=== PATIENT | female | born 1990 | race Caucasian/White ===

== ENCOUNTER → 2020-02-24 | Outpatient (CLI) | payer OTHER ==
[~2020-02-24] MED LIST: ACET325T14 PO; DIPH1TAB PO; HYDR-3240 PO; IBUP-1222 PO; SULF1TAB24 PO
== END | disposition home or self-care (01) ==
LOC: RAD 16:42 → EDSTATUS 17:00
PROVIDERS: ATTEND Family Medicine
DX: N83.202 Unspecified ovarian cyst, left side (principal); N83.201 Unspecified ovarian cyst, right side
CPT/HCPCS: 76830

== ENCOUNTER → 2020-11-21 | Outpatient (CLI) | payer OTHER ==
[~2020-11-21] MED LIST changes: +HYDR-2214 PO; -HYDR-3240 PO; +SULF-23 PO; -SULF1TAB24 PO
== END | disposition home or self-care (01) ==
LOC: RAD 14:33
PROVIDERS: ATTEND Nurse Practitioner
DX: M85.2 Hyperostosis of skull (principal); R22.0 Localized swelling, mass and lump, head
CPT/HCPCS: 70260